=== PATIENT | female | born 1960 | race Caucasian/White ===

== ENCOUNTER → 2023-03-17 | Outpatient (CLI) | payer MEDICARE, BC, SELFPAY ==
--- NOTE | 2023-03-17 14:17 | US_ITS ---
STUDY: ULTRASOUND BREAST - RIGHT REASON FOR EXAM: Female, 63 years old. Abnormal mammogram TECHNIQUE: Axial and longitudinal images of the RIGHT breast were performed with a high resolution ultrasound transducer. # OF IMAGES: 33 COMPARISON: 03/10/2023 FINDINGS: RIGHT Breast: 4 quadrant and retroareolar ultrasound of the right breast performed. Dense fibroglandular tissue noted. Multiple scattered simple cysts noted in the upper outer quadrant of the right breast. Largest measures 0.8 x 0.7 x 0.6 cm. No suspicious shadowing solid lesion, architectural distortion, or clustered shadowing calcifications. US/Breast Limited Unilateral IMPRESSION: No suspicious sonographic findings ASSESSMENT CATEGORY: BIRADS Category 2: Benign. A letter regarding these results will be sent to the patient by the facility within 30 days. Electronically Signed: Sumit Trent MD at 15:16 EDT ,
== END | disposition home or self-care (01) ==
PROVIDERS: PCP Family Medicine; Referring Provider Family Medicine; Visit Provider Family Medicine
DX: R92.8 Other abnormal and inconclusive findings on diagnostic imaging of breast (principal)
CPT/HCPCS: 76642

== ENCOUNTER 2024-04-04 10:44 | Day surgery (SDC) | payer MEDICARE, BC, SELFPAY ==
[2024-04-04] VITALS (7 sets, daily range): BP systolic 130–169; BP diastolic 56–85; PULSE 65–75; RESP 16; TEMP 36.3–36.6; O2SAT 94–99; BMI 29.9
--- NOTE | 2024-04-04 10:55 | HP.PCM_ITS ---
History and Physical Date of Admission: 04/04/24 Vital Signs 03/20/2410:15 Height 5 ft 6 in Weight: 184 lb 8 oz BMI 29.7 BP 142/81 H Intake Visit Reasons: D&C Tele Marketing Executive Required: No Is patient in pain?: No Allergies codeine Allergy (Mild, Verified 03/20/24 10:07) PT UNSURE OF REACTION Medications ?Medication ?Instructions ?Recorded ?Confirmed ?Type alendronate 35 mg tablet 35 mg PO QWEEK 03/14/24 03/20/24 History losartan 25 mg tablet 25 mg PO DAILY 03/14/24 03/20/24 History venlafaxine 37.5 mg 37.5 mg PO DAILY 90 days #90 caps 03/20/24 03/20/24 Rx capsule,extended release 24 hr (Effexor XR) Post menopausal: No Patient : No : No PFSH Surgical History S/P wrist surgery S/P left oophorectomy Family History Sister Breast cancer Social History household members: spouse current occupational status: retired Smoking Status: Never smoker alcohol intake: never substance use type: does not use seatbelt use: always do you feel safe at home: Yes additional social history: - [place]-Retired [employer] D&C Details: FRANSISCA DIA is a 64 year old who presents for preop exam for postmenopausal bleeding and difficulty entering the cervix in the office. Saw PCP in [facility] completed and scan to this chart: 6mm uterine lining with 4.7cm posterior fibroid. States bleeding was one time and small amount on toilet tissue. States 8 yr menopausal. Recent negative pap and hpv per PCP(scanned to chart). States does yearly mammograms with PCP History 2 Elective abortions Hx Para Spontaneous abortions Hx # Term Pregnancies Ectopic pregnancies Hx # Pregnancies Multiple births # of living children Past Pregnancies Del. Date Name GA/Weeks Outcome Route Bth Weight Infant Gen Labor Lgth Anesthesia Del Locatn Provider FOB Unknown [place] Unknown Banjamin ROS Const ROS Unobtainable: All systems reviewed & are unremarkable except as noted in H Resp Resp: Reports system reviewed and no additional complaints, except as documented; Denies cough GI GI: Reports as per HPI Psych Psych: Reports system reviewed and no additional complaints, except as documented Exam Const General: cooperative, healthy appearing, comfortable and no acute distress Resp Effort & Inspection: normal respiratory effort Skin General: no rashes or lesions noted Psych Appearance: grossly normal Speech and Movement: speech and movement normal Coding Level of Care Code Off vis,est,level 4 Diagnoses Uterine leiomyoma, unspecified location D25.9 Uterine leiomyoma location: unspecified location Postmenopausal bleeding N95.0 Assessment and Plan Assessment and Plan (1) Uterine fibroid: Status: Acute Qualifiers: Uterine leiomyoma location: unspecified location Qualified Code(s): D25.9 - Leiomyoma of uterus, unspecified Comment: 4.7cm exophytic posterior on US/[place] and scanned. (2) Postmenopausal bleeding: Status: Acute Comment: failed EMB-unable to dilate:plan hysteroscopy D&C Medications: New venlafaxine ER (Effexor XR) 37.5 mg PO DAILY 90 days 90 caps 4RF Plan After discussing the patient's diagnosis and treatment plan options, patient wishes to proceed with surgical management. I have discussed with the patient the risks, benefits, and alternatives of the procedure which include but are not limited to risks of anesthesia, bleeding, infection, possible damage to bowel, bladder, or surrounding vasculature which could lead to additional surgery to evaluate any complications. Patient agrees to procedure and wishes to proceed. ACOG/uptodate references given for additional information regarding procedure. plan is for a hysteroscopy dilation and curettage She is also interested in treatment for hot flashes. Plan is to start effexor. risks, benefit, alternatives discussed and rx sent to pharmacy.
[2024-04-04] MEDS: Lactated Ringers 1,000 ML 15 ML IV (11:12)
[2024-04-04 11:19] LABS: Hematocrit 45.4 % (37-47); Hemoglobin 14.8 g/dL (12.0-15.0); Mean Corp Hgb Conc 32.6 g/dL (32-36); Mean Corpuscular Hgb 29.4 pg (27.0-32.0); Mean Corpuscular Volume 90.1 fL (81-99); Mean Platelet Vol. 10.1 fl (6.2-12.0); Platelet Count 241 K/mm3 (150-450); RBC Distribution Width CV 12.7 % (11.6-14.6); RBC Distribution Width SD 41.8 fl (35.1-43.9); Red Blood Count 5.04 M/mm3 (4.2-5.4); White Blood Count 6.2 K/mm3 (4.4-11.0)
--- NOTE | 2024-04-04 11:41 | PCM.PRE.AN2 ---
ASA Classification* ASA Classification ASA Classification: 2 Assessment & Plan Anesthesia* Anesthesia Assessment Anesthesia Assessment: Discussed sedation and/or anesthesia options, risks, benefits, and alternatives with patient/parents/legal guardian/POA. Questions invited. The patient/parents/legal guardian/POA seems to understand and agrees to proceed with anesthesia plan. Reviewed the physical assessment, medical history, allergy history and patient home medications list prior to surgery/procedure/anesthetic and documented any changes. Performed airway and anesthesia risk assessments. Anesthesia Type Anesthesia Type: MAC (see written pre anesthesia record for full assessment) Anesthesia Focused Assessment* Temperature: 97.9 F Pulse Rate: 65 Blood Pressure: 169/68 Respiratory Rate: 16 Pulse Ox: 99 Airway Assessment Mouth opens: >3 cm Mallampati Score: II Focused Labs Anesthesia Preop lab: CBC WBC 6.2 K/mm3 (4.4-11.0) 04/04/24 11:07 RBC 5.04 M/mm3 (4.2-5.4) 04/04/24 11:07 Hgb 14.8 g/dL (12.0-15.0) 04/04/24 11:07 Hct 45.4 % (37-47) 04/04/24 11:07 Plt Count 241 K/mm3 (150-450) 04/04/24 11:07 CHEMISTRY COAG Pre-Assessment Diagnosis/Proposed Procedure Planned Operative Procedure(s): HYSTEROSCOPY D&C Anesthesia History 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 When Was Last Pacemaker Check QUESTION #4 FULL TEXT: You/Your Family Experience fever (hyperthermia) with Anesthesia Last Oral Intake Last Oral intake: Last Oral Intake NPO since 06:00 04/04/24 11:09 Meds taken in AM with sips of water? Meds patient instructed to take am of surgery PONV PONV - mechanical engineering technician: PONV - mechanical engineering technician Female Yes 03/27/24 09:39 HX of Motion Sickness No 03/27/24 09:39 HX of N/V After Surgery No 03/27/24 09:39 Non-Smoker Yes 03/27/24 09:39 Duration of Surgery greater No 03/27/24 09:39 than 60 minutes Number of Risk Factors 2 03/27/24 09:39 PONV Score Moderate Risk 03/27/24 09:39 Height & Weight Height & Weight: Anesthesia: Height & Weight Height 5 ft 6 in 04/04/24 11:09 Weight: 84.368 kg 04/04/24 11:09 Body Mass Index (BMI) 29.9 04/04/24 11:09 Respiratory Assessment Respiratory Assessment - mechanical engineering technician: Respiratory Tract Infection Hx - mechanical engineering technician Hx Respiratory Tract Infection No 03/27/24 09:39 STOP Sleep Apnea STOP Sleep Apnea - mechanical engineering technician: STOP Sleep Apnea - mechanical engineering technician Hx Hypertension Yes: CONTROLLED WITH MED 03/27/24 09:39 Hx Sleep Apnea No 03/27/24 09:39 CPAP BIPAP Do you snore loudly (louder Yes 03/27/24 09:39 than talking or can be heard Do you often feel tired/ Yes 03/27/24 09:39 fatigued/ sleepy during daytime? Has anyone observed you stop No 03/27/24 09:39 breathing during sleep? STOP Results Positive 03/27/24 09:39 QUESTION #5 FULL TEXT : Do you snore loudly (louder than talking or can be heard through closed doors)? Tobacco Use History Tobacco Use History - mechanical engineering technician: Tobacco Use History - mechanical engineering technician Tobacco Use Smoking Status Never smoker 03/27/24 09:39 Hx Tobacco Use No 03/27/24 09:39 Years Smoking Packs Smoked per Day Smoking Cessation Date was within the last 15 years Hx Smoking Cessation Date Hx Smoking Cessation Counseling Hematologic Medial History Hematologic Hx - mechanical engineering technician: Hematologic Medical Hx - nut roaster Hx of Blood Transfusion No 03/27/24 09:39 Hx of Transfusion in last 3 No 03/27/24 09:39 Months Date of Last Transfusion (if within last 3 months) Ever experience any problems No 03/27/24 09:39 with transfusion(s)? Specify any problems Hx of Preganancy in last 3 No 03/27/24 09:39 Months Nurse Filling Out Transfusion DSCHRIBER 03/27/24 09:39 & Questions: Date: 03/27/24 03/27/24 09:39 Time: 09:40 03/27/24 09:39 Patient unable to answer at this time (ie. confused, unrespo /Reproduction History /Reproductive History - mechanical engineering technician: /Reproductive Hx- mechanical engineering technician Hx Now No 03/27/24 09:39 Gestational Age (in weeks): EDC: Hx Hx Para Hx Section SAB No 03/27/24 09:39 Active Medications Active Medications: Current Medications Generic Name Dose Route Start Last Admin Trade Name Freq PRN Reason Stop Dose Admin Lactated Ringer's 1,000 mls @ 15 mls/hr 04/04/24 11:00 04/04/24 11:12 IV 15 mls/hr .Q48H JOHNATHON Administration PFSH Medical History Wears glasses Post-menopausal History of steroid therapy Alcohol use Bladder disease Low iron History of diverticulitis Non-smoker History of echocardiogram History of pain when walking Hypertension Perforated bowel Home Medications ?Medication ?Instructions ?Recorded ?Last Taken ?Type losartan 25 mg tablet 25 mg PO DAILY 03/14/24 04/04/24 06:00 History venlafaxine 37.5 mg 37.5 mg PO DAILY 90 days #90 caps 03/20/24 Unknown Rx capsule,extended release 24 hr (Effexor XR) alendronate 70 mg tablet 70 mg PO QWEEK 03/27/24 Unknown History multivitamin (Daily Multi-Vitamin 1 tab PO DAILY 03/27/24 Unknown History tablet) Allergy/AdvReac Type Severity Reaction Status Date / Time codeine Allergy Mild PT UNSURE Verified 04/04/24 11:01 OF REACTION Family History Sister Breast cancer Surgical History Hx of colonoscopy S/P wrist surgery S/P left oophorectomy Social History household members: spouse current occupational status: retired Smoking Status: Never smoker alcohol intake: never substance use type: does not use seatbelt use: always do you feel safe at home: Yes additional social history: - [place]-Retired Review of Systems (Anesthesia) ROS Narrative System reviewed and no additional complaints, except as documented.
--- NOTE | 2024-04-04 12:03 | PCM.DC ---
Discharge Instructions Diet Discharge Diet: No restrictions Activity Discharge Activity: Return to Normal Activity, May Shower and May Take a Tub Bath (after 1 week) May resume sexual activity in: 1-2 weeks Weight Bearing Status: Weight bearing as tolerated Lifting Restrictions: none Dressing / Incision Call your doctor if you observe: Fever of 101 or Higher, Using more than 1 pad per hour, Shortness of breath and Uncontrolled pain Follow Up Care Please Follow Up With: Jacqueline Woo DO When: Call [phone] to schedule appointment. Test Results: Test results from this visit will be discussed in further detail at your follow-up appointment, if applicable. Discharge Plan Admission Attending Provider: Jacqueline Woo Primary Care Provider: Marshall Cantrell Instructions Print Language: Turkish Discharge Orders/Prescriptions Prescriptions: No Action losartan 25 mg tablet 25 mg PO DAILY venlafaxine [Effexor XR] 37.5 mg capsule,extended release 24hr 37.5 mg PO DAILY 90 Days Qty: 90 4RF alendronate 70 mg tablet 70 mg PO QWEEK multivitamin [Daily Multi-Vitamin] Tablet 1 tab PO DAILY Referrals / Follow Up: Marshall Cantrell MD [Primary Care Provider] - Disposition Disposition (needs filled in before D/C Order can be placed): Home, Self Care
--- NOTE | 2024-04-04 12:20 | EMB_PTH ---
PATIENT: FRANSISCA DIA [place] [id number] AGE/SX: 64/F ROOM: RE04/04/[address]: Dr. Jacqueline Woo DO : 1960 BED: DIS: 04/04/2024 SPEC #: [id number] RECD: 04/04/24 14:01 STATUS: RYAN SOLO #: [id number] BALDOMERO: 04/04/24 12:[address]: Jacqueline Woo DEPT: SURGICAL PATHOLOGY RECD BY: Priscilla Young ENTERED: 04/04/24 14:12 SP TYPE: ENDOM BX/C ANABEL DR: Dr. Marshall Cantrell MD Tissues: Endometrium, NOS Procedures: Surgery Specimen Level IV HEADER OPERATION: Hysteroscopy, D&C PRE-OP DIAGNOSIS: Uterine fibroid, postmenopausal bleeding TISSUE SUBMITTED: Endometrial currettings MICROSCOPIC DIAGNOSIS Endometrial curettings: Superficial fragments of benign endometrial tissue. Fragments of benign ectocervical epithelium. See comment. ARNOLD/ 04/05/2024 COMMENT Clinical correlation and appropriate follow up are necessary. MICROSCOPIC DESCRIPTION Slides are reviewed. GROSS DESCRIPTION Received in fixative is one container labeled with the patient's name and designated Endometrial curettings. The specimen consists of multiple irregular fragments of hemorrhagic soft tissue that in aggregate measure 2.0 x 0.5 x 0.2 cm. The specimen is totally submitted in one cassette. ARNOLD/ 04/04/2024 TC:4 CPT:[id number]
[2024-04-04] MEDS: Lidocaine 1% (20 ml mdv) 20 ML Vial (12:27)
--- NOTE | 2024-04-04 12:47 | PCM.POST.ANE ---
Anesthesia: Postop Eval I Current Vital Signs Temperature: 97.4 F Pulse Rate: 75 Blood Pressure: 130/56 Respiratory Rate: 16 Pulse Ox: 94 Oxygen Delivery Method: Room Air Assessment Airway patent: Yes Spontaneous unlabored respirations: Yes Mental status: Awake (easily arousable) and Calm nausea: No Vomiting: No Anesthesia Complication: No Fluid Hydration Crystalloid volume administer (ml): 600 Total IV fluid infused: 600 Progress Note Anesthesia document: Postop Eval 1 completed: Yes
--- NOTE | 2024-04-04 12:54 | PCM.OPRPT ---
Problems Associated Problem List Diagnoses (1) Uterine fibroid: (2) Postmenopausal bleeding: Report of Operation Date of Procedure: 04/04/24 Pre-Operative Diagnosis: postmenopausal bleeding Post-Operative Diagnosis: postmenopausal bleeding Surgery/Procedure Performed:: hysteroscopy dilation and curettage Description of Surgical Findings:: atrophic endometrium Surgeon: Jacqueline Woo military education coordinator: None Type of Anesthesia: MAC and Topical Anesth Specimen's removed: endometrial curetting's Drains: none Estimated Blood Loss (mL): 5cc Description of Procedure: Patient was prepped and draped in a normal sterile fashion under MAC anesthesia. A weighted speculum was placed in the vagina and the anterior lip of the cervix was grasped with a single-tooth tenaculum. A paracervical block was placed with 1% lidocaine. Cervix was progressively dilated to allow passage of a 5 mm hysteroscope. The lining was fully visualized and noted to be thin and atrophic . Uterine sounded to 7 cm. Curettage was performed and scant tissue was sent to pathology. A 3-0 vicryl suture was used to stop some bleeding at the cervix in a figure of 8 fashion. All instruments were removed from the vagina and excellent hemostasis was noted. Patient was awoken and taken to recovery in stable condition. Complications none Admit VTE Documentation VTE Present on Admission: No VTE Mechan Device Prophylaxis: SCD's VTE Pharm Prophylaxis ordered?: No Multi Select Codes Urinary/Genital Urinary/Genital CPT Codes: 64264 Hysteroscopy,EMC, Polypectomy
--- NOTE | 2024-04-04 15:15 | POSTOPAN2_ITS ---
Anesthesia Postop Eval I Sum Postop Eval Completion status Anesthesia document: Postop Eval 1 completed: Yes Anesthesia Postop Eval I Summary Anesthesia Postop Eval I Summary: Anesthesia Postop Eval I: Assessment Summary Airway patent Yes 04/04/24 12:48 AUTOMOTIVE PAINT [email or web address] Spontaneous unlabored Yes 04/04/24 12:48 AUTOMOTIVE PAINT TECHNICIAN.SCHR respirations Mental status Awake - easily 04/04/24 12:48 AUTOMOTIVE PAINT TECHNICIAN.SCHR arousable,Calm nausea No 04/04/24 12:48 AUTOMOTIVE PAINT TECHNICIAN.SCHR Vomiting No 04/04/24 12:48 AUTOMOTIVE PAINT TECHNICIAN.SCHR Anesthesia Postop Eval I: Fluid Summary Crystalloid volume administer 600 04/04/24 12:48 AUTOMOTIVE PAINT TECHNICIAN.SCHR (ml) Colloids volume administered ( ml) Blood Product volume administered (ml) Total IV fluid infused 600 04/04/24 12:48 AUTOMOTIVE PAINT TECHNICIAN.SCHR Anesthesia Postop Eval I: Summary Notes Anesthesia Complication No 04/04/24 12:48 AUTOMOTIVE PAINT TECHNICIAN.SCHR Anesthesia Complication Comment: Post-operative progress note Anesthesia: Postop Eval II Evaluation Mental status: Awake and Calm Pain Level: 1 nausea: No Vomiting: No Complications Anesthesia Complication: No
--- NOTE | 2024-04-04 15:15 | PCM.POSTANE2 ---
Anesthesia Postop Eval I Sum Postop Eval Completion status Anesthesia document: Postop Eval 1 completed: Yes Anesthesia Postop Eval I Summary Anesthesia Postop Eval I Summary: Anesthesia Postop Eval I: Assessment Summary Airway patent Yes 04/04/24 12:48 LEAD PONY [email or web address] Spontaneous unlabored Yes 04/04/24 12:48 LEAD PONY [email or web address].SCHR respirations Mental status Awake - easily 04/04/24 12:48 LEAD PONY RIDER.SCHR arousable,Calm nausea No 04/04/24 12:48 LEAD PONY RIDER.SCHR Vomiting No 04/04/24 12:48 LEAD PONY [email or web address].SCHR Anesthesia Postop Eval I: Fluid Summary Crystalloid volume administer 600 04/04/24 12:48 LEAD PONY [email or web address].SCHR (ml) Colloids volume administered ( ml) Blood Product volume administered (ml) Total IV fluid infused 600 04/04/24 12:48 LEAD PONY [email or web address].SCHR Anesthesia Postop Eval I: Summary Notes Anesthesia Complication No 04/04/24 12:48 LEAD PONY [email or web address].SCHR Anesthesia Complication Comment: Post-operative progress note Anesthesia: Postop Eval II Evaluation Mental status: Awake and Calm Pain Level: 1 nausea: No Vomiting: No Complications Anesthesia Complication: No
== END 2024-04-04 13:43 | disposition home or self-care (01) ==
LOC: SDC 10:45 → AC 10:46
PROVIDERS: PCP Family Medicine; Referring Provider Obstetrics & Gynecology; Visit Provider Obstetrics & Gynecology
PROC: 0UDB8ZZ Extraction of Endometrium, Via Natural or Artificial Opening Endoscopic (ICD-10-PCS; CPT 58558; principal; 2024-04-04 12:10)
DX: N95.0 Postmenopausal bleeding (principal); I10 Essential (primary) hypertension; Z79.899 Other long term (current) drug therapy
CPT/HCPCS: 58558; 00952; 85027; 86850; 86900; 86901; 88305; J7120; J2405